=== PATIENT | female | born 1940 | race Caucasian/White ===

== ENCOUNTER 2016-11-19 10:21 | Outpatient (CLI) | payer MEDICARE, OTHER ==
[2014-11-15 10:31] VITALS: BP 179/82
[2016-11-19 11:19] LABS: eGFR (African) > 60; eGFR (Non-African) > 60
== END 2016-11-19 10:31 ==
LOC: LAB 10:21
PROVIDERS: ATTEND Family Medicine
DX: E87.6 Hypokalemia (principal); E11.9 Type 2 diabetes mellitus without complications
CPT/HCPCS: 36415; 80048; 83036

== ENCOUNTER 2016-12-04 13:38 | Outpatient (CLI) | payer MEDICARE, OTHER ==
[2014-11-15 10:31] VITALS: BP 179/82
--- NOTE | 2016-12-04 14:40 | Diagnostic Imaging Report ---
LORNA OWENS - MAME [facility] [address] [facility] [address] [id number] Report Submission Date: Dec 04, 2016 2:35:53 PM FULFILLMENT COORDINATOR Patient Study Name: SACHIN TEJEDA Date: Dec 04, 2016 2:22:41 PM FULFILLMENT COORDINATOR Modality Type: CR Gender: F Description: CHEST : 44 Institution: [facility] Physician: LORNA OWENS - MAME Chest -two views CLINICAL HISTORY: Cough for 5 days. FINDINGS: Examination of the chest in [place] and lateral views with no prior film for comparison demonstrates the lungs to be clear. Cardiac silhouette is within normal limits and the aorta is atherosclerotic. Degenerative changes are seen in the thoracic vertebrae and shoulders. IMPRESSION: Aortic atherosclerosis. No active disease. Electronically signed on Dec 04, 2016 2:35:53 PM FULFILLMENT COORDINATOR by: Martin ALCANTAR
[2016-12-05 10:34] LABS: ADENOVIRUS DNA NEGATIVE (NEGATIVE); BORDETELLA PERTUSSIS DNA NEGATIVE (NEGATIVE); SOURCE: SWAB
== END 2016-12-04 13:40 ==
LOC: LAB 13:38
PROVIDERS: ATTEND Family Medicine
DX: R05 Cough (principal)
CPT/HCPCS: 71020; 87486; 87581; 87633; 87798

== ENCOUNTER 2017-02-18 10:17 | Outpatient (CLI) | payer MEDICARE, OTHER ==
[2014-11-15 10:31] VITALS: BP 179/82
== END 2017-02-18 10:18 ==
LOC: LAB 10:17
PROVIDERS: ATTEND Family Medicine
DX: E11.9 Type 2 diabetes mellitus without complications (principal); E03.9 Hypothyroidism, unspecified
CPT/HCPCS: 36415; 80061; 83036; 84443

== ENCOUNTER 2017-09-16 16:27 | Outpatient (CLI) | payer MEDICARE, OTHER ==
[2014-11-15 10:31] VITALS: BP 179/82
[2017-09-16 16:47] LABS: BASOPHILS % 0.5 (0.0-1.5); MEAN CORPUSCULAR HEMOGLOBIN 28.4 pg (28.0-34.0); MEAN CORPUSCULAR VOLUME 86.7 fl (80.0-100.0)
[2017-09-16 17:08] LABS: eGFR (African) > 60; eGFR (Non-African) > 60
== END 2017-09-16 16:30 ==
LOC: LAB 16:27
PROVIDERS: ATTEND Family Medicine
DX: R53.83 Other fatigue (principal)
CPT/HCPCS: 36415; 80053; 85025

== ENCOUNTER 2017-11-13 11:18 | Outpatient (CLI) | payer MEDICARE, OTHER ==
[2014-11-15 10:31] VITALS: BP 179/82
== END 2017-11-13 11:20 ==
LOC: LAB 11:18
PROVIDERS: ATTEND Family Medicine
DX: E11.9 Type 2 diabetes mellitus without complications (principal); E03.9 Hypothyroidism, unspecified
CPT/HCPCS: 36415; 83036; 84443

== ENCOUNTER 2018-07-15 12:24 | Outpatient (CLI) | payer MEDICARE, OTHER ==
[2014-11-15 10:31] VITALS: BP 179/82
== END 2018-07-15 12:25 ==
LOC: LABRHC 12:24
PROVIDERS: ATTEND Physician Assistant
DX: R30.0 Dysuria (principal)
CPT/HCPCS: 87086

== ENCOUNTER 2018-08-18 10:22 | Outpatient (CLI) | payer MEDICARE, OTHER ==
[2014-11-15 10:31] VITALS: BP 179/82
[2018-08-18 11:10] LABS: BASOPHILS % 0.2 (0.0-1.5); EOSINOPHILS % 3.3 % (0.0-6.8); MEAN CORPUSCULAR HEMOGLOBIN 28.8 pg (28.0-34.0); MONOCYTES % 4.8 % (0.0-11.0); NEUTROPHILS # 4.5 # k/uL (1.4-7.7)
[2018-08-18 11:15] LABS: eGFR (Non-African) > 60
[2018-08-20 10:01] LABS: ADENOVIRUS F 40/41 NOT DETECTED (Not Detected); ASTROVIRUS NOT DETECTED (Not Detected); C. DIFFICILE (TOXIN A/B) NOT DETECTED (Not Detected); CRYPTOSPORIDIUM NOT DETECTED (Not Detected); CYCLOSPORA CAYETANENSIS NOT DETECTED (Not Detected); ENTAMOEBA HISTOLYTICA NOT DETECTED (Not Detected); GIARDIA LAMBLIA NOT DETECTED (Not Detected); ROTAVIRUS A NOT DETECTED (Not Detected); SAPOVIRUS NOT DETECTED (Not Detected); VIBRIO CHOLERAE NOT DETECTED (Not Detected)
== END 2018-08-18 13:18 ==
LOC: LAB 10:22
PROVIDERS: ATTEND Family Medicine
DX: R53.82 Chronic fatigue, unspecified (principal); R19.7 Diarrhea, unspecified; E11.9 Type 2 diabetes mellitus without complications
CPT/HCPCS: 36415; 80053; 83036; 83690; 84443; 85025; 87507

== ENCOUNTER 2019-01-06 10:27 | Outpatient (CLI) | payer MEDICARE, OTHER ==
[2014-11-15 10:31] VITALS: BP 179/82
[2019-01-06 11:00] LABS: eGFR (Non-African) > 60
== END 2019-01-06 10:30 ==
LOC: LAB 10:27
PROVIDERS: ATTEND Family Medicine
DX: E11.9 Type 2 diabetes mellitus without complications (principal)
CPT/HCPCS: 36415; 80053; 80061; 83036

== ENCOUNTER 2019-07-07 13:20 | Outpatient (CLI) | payer MEDICARE, OTHER ==
[2014-11-15 10:31] VITALS: BP 179/82
[2019-07-07 13:43] LABS: A1C 5.6 % (<5.7)
[2019-07-07 14:23] LABS: TSH < 0.010 mIU/l (0.465-4.685)
== END 2019-07-07 13:23 ==
LOC: LAB 13:20
PROVIDERS: ATTEND Family Medicine
DX: E11.9 Type 2 diabetes mellitus without complications (principal); E03.9 Hypothyroidism, unspecified
CPT/HCPCS: 36415; 83036; 84443

== ENCOUNTER 2019-08-27 13:48 | Outpatient (CLI) | payer MEDICARE, OTHER ==
[2014-11-15 10:31] VITALS: BP 179/82
== END 2019-08-27 13:53 ==
LOC: LAB 13:48
PROVIDERS: ATTEND Family Medicine
DX: E03.9 Hypothyroidism, unspecified (principal)
CPT/HCPCS: 36415; 84443